=== PATIENT | male | born 1960 | race American Indian/Alaskan Native ===

== ENCOUNTER 2018-01-25 23:18 | Emergency (ER) | payer OTHER ==
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
[2018-01-26 00:08] VITALS: TEMP 98.1
[2018-01-26 04:20] VITALS: BP 115/75; PULSE 65; RESP 18; O2SAT 100
--- NOTE | 2018-01-26 10:13 | RAD ---
PROCEDURE: Cervical Spine Radiographs. HISTORY: Pain. COMPARISON: None. FINDINGS: BONES: Alignment maintained. No fracture. Dens Intact. DISC SPACES: Multilevel degenerative change C3-4 C5-6 and C6-7 SOFT TISSUES: Normal. No prevertebral soft tissue swelling. OTHER FINDINGS: None. IMPRESSION: Multilevel degenerative change. No acute findings. Concordant results with the preliminary interpretation rendered by the emergency department physician procedure.
== END 2018-01-26 01:15 | disposition home or self-care (01) ==
LOC: ED 23:18
DX: S16.1XXA Strain of muscle, fascia and tendon at neck level, initial encounter (principal); Y08.89XA Assault by other specified means, initial encounter; Y92.238 Other place in hospital as the place of occurrence of the external cause; Y99.0 Civilian activity done for income or pay